=== PATIENT | male | born 1945 | race Caucasian/White ===

== ENCOUNTER 2016-10-17 12:07 | Day surgery (SDC) | payer OTHER ==
[2016-10-07 14:22] LABS: HEMATOCRIT 39.8 % (40.0-51.0); HEMOGLOBIN 12.8 g/dL (13.6-17.8)
[2016-10-07 14:36] LABS: BUN (BLOOD UREA NITROGEN) 18 MG/DL (6-23); CALCIUM, SERUM 9.4 MG/DL (8.5-10.4); CHLORIDE, SERUM 100 MMOL/L (96-112); CO2 (CARBON DIOXIDE) 28 MMOL/L (24-34); CREATININE 1.23 MG/DL (0.70-1.30); GFR AFRICAN AMERICAN 69 ML/MIN (>=60); GFR NON AFRICAN AMERICAN 60 ML/MIN (>=60); GLUCOSE, SERUM 164 MG/DL (60-99); POTASSIUM, SERUM 4.5 MMOL/L (3.5-5.3); SODIUM, SERUM 139 MMOL/L (135-148)
[2016-10-07 16:40] LABS: ASCORBIC ACID (UR NOT ORDER) NEG (NEG); BILIRUBIN, URINE NEGATIVE (NEG); KETONE, URINE NEGATIVE (NEG); LEUKOCYTE ESTERASE(NOT OR TRACE (NEG); WBC (NOT ORDERED) (RFLEX) 11 (0-5)
--- NOTE | ~2016-10-17 | OP ---
Record Of Operation [facility] [address] [place]. [address] NAME: MAURY GAO : 49 STATUS : [facility]#: [id number] AGE: 71 ADM/REG DATE : 10/17/16 MR#: [id number] REPORT SERV DATE: 10/17/16 DICTATED BY: NARAYAN BECKETT JR. DATE: 10/17/16 REPORT STATUS : Draft TRANSCRIBED BY: MODL DATE: 10/17/16 DATE OF PROCEDURE: 10/17/2016 SURGEON: Narayan Beckett M.D. PREOPERATIVE DIAGNOSIS: Urethral stenosis and left renal stones. POSTOPERATIVE DIAGNOSIS: Urethral stenosis and left renal stones. PROCEDURE PERFORMED: Cystoscopy, dilation of bulbous urethral stricture, dilation of left ureteral orifice, retrograde pyelogram on the left, left ureteroscopy, laser ablation of left UPJ stone, and multiple lower pole renal stones, double-J stent placement. COMPLICATIONS: None. CONSULTATIONS: None. ANESTHESIA: General with an endotracheal tube. SPECIMENS: Stone fragments. DRAINS: 7 x 26 cm double-J stent. ESTIMATED BLOOD LOSS: None. INDICATION: Mr. Gao is a 71-year-old gentleman, who has a long history of recurrent urinary tract infections and multiple stones on the left. 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 He also has a known bulbous urethral stricture which seems by history has recurred. PROCEDURE IN DETAIL: After the patient was identified and proper informed consent was obtained, he was taken to the operating room. General anesthesia was performed without complication using an endotracheal tube. He was then prepped and draped in normal sterile fashion in the lithotomy position. Cystoscopic examination was performed and revealed the bulbous urethral stricture approximately 5-[place] in diameter. Being on Plavix, I was unable to incise the stricture, however, I did place a guidewire through the stricture into the bladder, and dilated the urethra to 24-[place] using Amplatz dilators. Once I had successfully dilated the urethra which seemed to dilate quite easily, I was able to perform cystoscopy and retrograde pyelogram on the left. The stone was seen as a filling defect not very visible on plain film at the left UPJ. He also had several other stones that were known based on the noncontrast CT scan. A guidewire was then advanced through the open- ended catheter up to the lower pole of the kidney. A 14-[place] ureteral access sheath was used to dilate the distal ureter. The external 14-[place] sheath was left in place and flexible ureteroscopy was performed. The stones were all visualized, I had good visibility throughout the case. The 200 micron Holmium laser fiber was used on dusting setting to fragment all the stones into multiple small pieces. The largest of those was a 7 mm UPJ Record Of Operation [facility] [id number] [place]. [address] NAME: MAURY GAO : 49 STATUS : [facility] PAT#: [id number] AGE: 71 ADM/REG DATE : 10/17/16 MR#: [id number] REPORT SERV DATE: 10/17/16 DICTATED BY: NARAYAN BECKETT JR. DATE: 10/17/16 REPORT STATUS : Draft TRANSCRIBED BY: MANPREET DATE: 10/17/16 stone in the lower pole moiety. I did remove two of the larger fragments for size purposes and the largest of those pieces was 1 mm in size. He did have a slight narrowing at the UPJ in the lower pole moiety, this was dilated using the ureteroscope, and I left a 7 x 26 cm stent to hopefully dilate that up over the next few weeks. I will see him back in the office in one week for Cage catheter removal. A 20-[place] tip catheter was put in over the guidewire that remained in place throughout the case. A cystogram was done to confirm the location. The double-J stent will be removed in the office in approximately two weeks. ALMA Narayan Beckett Jr., M.D. / [id number] CC: Darell Del Rio Jr., ZENAIDA S
[~2016-10-17 12:07] MED LIST: C5 PO; COREG12 PO; COUMADIN7.5 MG PO; DYAZIDE1 CAP PO; EFFEX75 PO; EFFEXXR75 PO; ENBREL25 MG SC; FOLIC PO; GLUCPH PO; HYDROCHLOROT25 MG PO; INSNOVN SC; LANTUSCART SC; LIPITOR40 PO; LISINOPRIL40 MG PO; MACROBID PO; MTX2.5 PO; NEUR100 PO; NEUR800 PO; NORCO1 TAB PO; NOVOPEN SQ; P5 PO; PLAVIX PO; PRILO PO; PROTONIX PO; TREXALL10 MG PO; VITAMIN D31000 UNIT PO; ZOL100 PO
[2016-10-21 22:14] LABS: STONE COMPOSITION TWO DNR (())
== END 2016-10-17 19:28 | disposition home or self-care (01) ==
LOC: SDC 12:07
PROVIDERS: Urology
PROC: 0TC48ZZ Extirpation of Matter from Left Kidney Pelvis, Via Natural or Artificial Opening Endoscopic (ICD-10-PCS; 2016-10-17)
PROC: 0TF48ZZ Fragmentation in Left Kidney Pelvis, Via Natural or Artificial Opening Endoscopic (ICD-10-PCS; principal; 2016-10-17 14:00)
PROC: 0T778DZ Dilation of Left Ureter with Intraluminal Device, Via Natural or Artificial Opening Endoscopic (ICD-10-PCS; 2016-10-17 14:00)
DX: N20.0 Calculus of kidney (principal); N35.9 Urethral stricture, unspecified; I21.4 Non-ST elevation (NSTEMI) myocardial infarction; G47.33 Obstructive sleep apnea (adult) (pediatric); M06.9 Rheumatoid arthritis, unspecified; I48.91 Unspecified atrial fibrillation; N40.0 Benign prostatic hyperplasia without lower urinary tract symptoms; E11.22 Type 2 diabetes mellitus with diabetic chronic kidney disease; N18.9 Chronic kidney disease, unspecified; I13.0 Hypertensive heart and chronic kidney disease with heart failure and stage 1 through stage 4 chronic kidney disease, or unspecified chronic kidney disease; I50.9 Heart failure, unspecified; Z85.46 Personal history of malignant neoplasm of prostate; Z92.3 Personal history of irradiation; Z95.1 Presence of aortocoronary bypass graft; Z98.890 Other specified postprocedural states; Z87.442 Personal history of urinary calculi; Z86.73 Personal history of transient ischemic attack (TIA), and cerebral infarction without residual deficits; Z79.01 Long term (current) use of anticoagulants; Z79.4 Long term (current) use of insulin; Z79.84 Long term (current) use of oral hypoglycemic drugs
CPT/HCPCS: 74420; 80048; 81001; 82365; 82962; 85014; 85018; 93005; A9270-GY; C1726; C1758; C1769; C2617; J0360; J1170; J2250; J2710; J3010; Q9967